=== PATIENT | female | born 1960 | race Caucasian/White ===

== ENCOUNTER → 2023-06-24 12:19 | Outpatient (REF) | payer BC, SELFPAY | LOC: HWRAD 12:19 | PROVIDERS: ATTENDING PHYSICIAN Internal Medicine | DX: R10.31 Right lower quadrant pain (principal) | CPT/HCPCS: 73502 ==

== ENCOUNTER → 2023-07-15 17:38 | Outpatient (REF) | payer BC, SELFPAY | LOC: PAVMRI 17:38 | PROVIDERS: ATTENDING PHYSICIAN Internal Medicine; FAMILY PHYSICIAN Internal Medicine Geriatric Medicine | DX: R10.31 Right lower quadrant pain (principal) | CPT/HCPCS: 73721 ==

== ENCOUNTER → 2023-09-05 16:06 | Outpatient (REF) | payer BC, SELFPAY | LOC: HWWDC 16:06 | PROVIDERS: ATTENDING PHYSICIAN Internal Medicine; FAMILY PHYSICIAN Internal Medicine Geriatric Medicine | DX: Z12.31 Encounter for screening mammogram for malignant neoplasm of breast (principal) | CPT/HCPCS: 77063; 77067 ==

== ENCOUNTER → 2023-09-26 06:04 | Outpatient (REF) | payer BC, SELFPAY ==
[2023-09-26 09:38] LABS: % Basophils 0.7 % (0-2); % Immature Granulocytes 0.3 % (0-0.5); % Lymphocytes 30.2 % (20.5-51.1); % Monocytes 6.9 % (1.7-9.3); % Neutrophils 59.9 % (42.2-75.2); Absolute Basophils 0.1 10^3/uL (0-0.2); Absolute Eosinophils 0.2 10^3/uL (0-0.7); Absolute Lymphocytes 2.3 10^3/uL (1.2-3.4); Absolute Monocytes 0.5 10^3/uL (0.1-0.6); Absolute Neutrophils 4.5 10^3/uL (1.4-6.5); Hematocrit 40.1 % (37.0-47.0); Hemoglobin 13.6 g/dL (12.0-16.0); Mean Corp Hgb Conc. 33.9 g/dL (33.0-37.0); Mean Corpuscular Hgb 30.7 pg (27.0-31.0); Mean Corpuscular Volume 90.5 fL (81.0-99.0); Mean Platelet Volume 10.1 fL (7.4-10.4); Nucleated Red Blood Cells % 0 %; Platelet Count 218 10^3/uL (130-400); Red Blood Cell Count 4.43 10^6/uL (4.20-5.40); Red Cell Dist. Width 12.4 % (11.5-14.5); White Blood Cell Count 7.6 10^3/uL (4.8-10.8)
[2023-09-26 09:41] LABS: Urine Albumin Negative (Neg - Trace); Urine Bilirubin Negative (Negative); Urine Character Clear (Clear); Urine Color Yellow; Urine Glucose Negative (Negative); Urine Ketone Negative (Negative); Urine Leukocyte 1+ (Negative); Urine Nitrite Negative (Negative); Urine Occult Blood Negative (Negative); Urine Specific Gravity 1.015 (<1.030); Urine Urobilinogen Negative (Neg - 1+)
[2023-09-26 09:52] LABS: ALT (SGPT) 35 U/L (0-35); AST (SGOT) 29 U/L (14-36); Albumin 4.5 g/dl (3.5-5.0); Alkaline Phosphatase 81 U/L (38-126); Blood Urea Nitrogen 26 mg/dl (7-17); Calcium 9.6 mg/dl (8.4-10.2); Carbon Dioxide 24 mmol/L (22-30); Chloride 105 mmol/L (98-107); Glucose 127 mg/dl (70-99); HDL Cholesterol 52 mg/dl; LDL Cholesterol, Calculated 111 mg/dl; Phosphorus 3.9 mg/dl (2.5-4.5); Potassium 4.5 mmol/L (3.5-5.1); Sodium 138 mmol/L (135-145); Total Bilirubin 0.8 mg/dl (0.2-1.3); Total Cholesterol 193 mg/dl (50-199); Total Protein 7.7 g/dl (6.3-8.2); Triglyceride 154 mg/dl (10-149); Very Low Density Lipoprotein 30 mg/dl (0-30); eGFR > 60.00
[2023-09-26 10:02] LABS: Urine Squamous Cell 21-25 /LPF (Few)
[2023-09-26 10:03] LABS: Urine Mucus Few; Urine White Cell 16-20 /HPF (0-5)
[2023-09-26 10:04] LABS: Urine Bacteria Few (Negative)
[2023-09-26 10:15] LABS: Free T4 0.83 ng/dl (0.78-2.19); Vitamin D, 25-OH*** 29.3 ng/mL (30-80)
[2023-09-26 10:21] LABS: TSH 4.86 uIU/ml (0.47-4.68)
== END ==
LOC: HWLAB 06:04
PROVIDERS: ATTENDING PHYSICIAN Internal Medicine Geriatric Medicine
DX: E55.9 Vitamin D deficiency, unspecified (principal); E03.8 Other specified hypothyroidism; R73.01 Impaired fasting glucose; K76.0 Fatty (change of) liver, not elsewhere classified; E66.01 Morbid (severe) obesity due to excess calories
CPT/HCPCS: 36415; 80053; 80061; 81003; 81015; 82306; 83036; 84100; 84439; 84443; 85025

== ENCOUNTER → 2024-05-25 12:54 | Outpatient (REF) | payer BC, SELFPAY | LOC: EMG 12:54 | PROVIDERS: ATTENDING PHYSICIAN Internal Medicine Geriatric Medicine | DX: M54.31 Sciatica, right side (principal); R20.0 Anesthesia of skin | CPT/HCPCS: 95886; 95910 ==

== ENCOUNTER → 2024-06-01 06:10 | Outpatient (REF) | payer BC, SELFPAY ==
[2024-06-01 09:54] LABS: % Basophils 0.7 % (0-2); % Eosinophils 2.1 % (0-6); % Immature Granulocytes 0.3 % (0-0.5); % Lymphocytes 36.2 % (20.5-51.1); % Monocytes 7.2 % (1.7-9.3); % Neutrophils 53.5 % (42.2-75.2); Absolute Basophils 0.1 10^3/uL (0-0.2); Absolute Eosinophils 0.2 10^3/uL (0-0.7); Absolute Lymphocytes 2.6 10^3/uL (1.2-3.4); Absolute Monocytes 0.5 10^3/uL (0.1-0.6); Absolute Neutrophils 3.9 10^3/uL (1.4-6.5); Hematocrit 40.3 % (37.0-47.0); Hemoglobin 13.4 g/dL (12.0-16.0); Mean Corp Hgb Conc. 33.3 g/dL (33.0-37.0); Mean Corpuscular Hgb 30.6 pg (27.0-31.0); Mean Platelet Volume 9.9 fL (7.4-10.4); Nucleated Red Blood Cells % 0 %; Platelet Count 196 10^3/uL (130-400); Red Blood Cell Count 4.38 10^6/uL (4.20-5.40); Red Cell Dist. Width 12.6 % (11.5-14.5); White Blood Cell Count 7.2 10^3/uL (4.8-10.8)
[2024-06-01 09:56] LABS: Urine Albumin 1+ (Neg - Trace); Urine Bilirubin Negative (Negative); Urine Character Clear (Clear); Urine Color Yellow; Urine Glucose Negative (Negative); Urine Ketone Negative (Negative); Urine Leukocyte 3+ (Negative); Urine Nitrite Negative (Negative); Urine Occult Blood 1+ (Negative); Urine Specific Gravity 1.015 (<1.030); Urine Urobilinogen Negative (Neg - 1+)
[2024-06-01 10:01] LABS: ALT (SGPT) 39 U/L (0-35); AST (SGOT) 26 U/L (14-36); Albumin 4.4 g/dl (3.5-5.0); Alkaline Phosphatase 71 U/L (38-126); Blood Urea Nitrogen 19 mg/dl (7-17); Calcium 9.9 mg/dl (8.4-10.2); Carbon Dioxide 25 mmol/L (22-30); Chloride 104 mmol/L (98-107); Creatine Phosphokinase 90 U/L (30-135); Glucose 133 mg/dl (70-99); HDL Cholesterol 53 mg/dl; LDL Cholesterol, Calculated 110 mg/dl; Potassium 4.7 mmol/L (3.5-5.1); Sodium 140 mmol/L (135-145); Total Bilirubin 0.8 mg/dl (0.2-1.3); Total Cholesterol 190 mg/dl (50-199); Total Protein 7.3 g/dl (6.3-8.2); Triglyceride 139 mg/dl (10-149); Very Low Density Lipoprotein 27 mg/dl (0-30); eGFR > 60.00
[2024-06-01 10:26] LABS: Urine Bacteria Few (Negative); Urine Red Blood Cell 0-2 /HPF (0-2); Urine White Cell 21-25 /HPF (0-5)
[2024-06-01 10:32] LABS: Vitamin D, 25-OH*** 29.6 ng/mL (30-80)
[2024-06-01 10:45] LABS: TSH 4.25 uIU/ml (0.47-4.68)
[2024-06-01 11:02] LABS: Erythrocyte Sed Rate 7 mm/hour (0-20)
[2024-06-01 13:38] LABS: Glycohemoglobin (HgbA1c) 6.3 % (4.0-5.6)
[2024-06-03 17:03] LABS: ANA, IgG Reflex to HEp-2 None Detected (None Detected)
== END ==
LOC: HWLAB 06:10
PROVIDERS: ATTENDING PHYSICIAN Internal Medicine Geriatric Medicine
DX: E66.01 Morbid (severe) obesity due to excess calories (principal); E03.8 Other specified hypothyroidism; E78.2 Mixed hyperlipidemia; K76.0 Fatty (change of) liver, not elsewhere classified; E55.9 Vitamin D deficiency, unspecified; R73.01 Impaired fasting glucose; E66.09 Other obesity due to excess calories; M85.89 Other specified disorders of bone density and structure, multiple sites
CPT/HCPCS: 36415; 80053; 80061; 81003; 81015; 82306; 82550; 83036; 84443; 85025; 85652; 86038; 86140

== ENCOUNTER → 2024-09-22 06:07 | Outpatient (REF) | payer BC, SELFPAY ==
[2024-09-22 10:16] LABS: ALT (SGPT) 36 U/L (0-35); AST (SGOT) 25 U/L (14-36); Albumin 4.4 g/dl (3.5-5.0); Alkaline Phosphatase 64 U/L (38-126); Blood Urea Nitrogen 23 mg/dl (7-17); Calcium 9.6 mg/dl (8.4-10.2); Carbon Dioxide 24 mmol/L (22-30); Chloride 107 mmol/L (98-107); Glucose 139 mg/dl (70-99); Potassium 4.6 mmol/L (3.5-5.1); Sodium 141 mmol/L (135-145); Total Bilirubin 0.6 mg/dl (0.2-1.3); Total Protein 7.4 g/dl (6.3-8.2); eGFR > 60.00
[2024-09-22 10:30] LABS: Glycohemoglobin (HgbA1c) 6.4 % (4.0-5.6)
== END ==
LOC: HWLAB 06:07
PROVIDERS: ATTENDING PHYSICIAN Internal Medicine Geriatric Medicine
DX: E66.01 Morbid (severe) obesity due to excess calories (principal); E03.8 Other specified hypothyroidism; E78.2 Mixed hyperlipidemia; K76.0 Fatty (change of) liver, not elsewhere classified; E55.9 Vitamin D deficiency, unspecified; R73.01 Impaired fasting glucose; E66.09 Other obesity due to excess calories; E06.3 Autoimmune thyroiditis; M85.859 Other specified disorders of bone density and structure, unspecified thigh; M79.604 Pain in right leg
CPT/HCPCS: 36415; 80053; 83036

== ENCOUNTER → 2024-10-05 11:46 | Outpatient (REF) | payer BC, SELFPAY | LOC: HWWDC 11:46 | PROVIDERS: ATTENDING PHYSICIAN Internal Medicine Geriatric Medicine | DX: Z12.31 Encounter for screening mammogram for malignant neoplasm of breast (principal) | CPT/HCPCS: 77063; 77067 ==

== ENCOUNTER 2024-11-22 06:17 | Day surgery (SDC) | payer BC, SELFPAY ==
--- NOTE | 2024-11-05 12:57 | CM ---
Demographics: Lives in a second floor apartment
Living situation: Lives with
Support Person Post Operatively:
History of
VN: yes, not currently on service
SNF: No
Outpatient: [facility], appointment made
Has patient purchased required equipment: natanael lay encouraged review of [employer] D[employer] list
PCP: Dr. Scott
Pharmacy: [facility]
Post Operative Discharge Plan: Home after SDS with [facility].
--- NOTE | 2024-11-09 15:01 | VNURNOTE ---
[facility] liaison called patient to review [facility] joint protocol. No answer, left message. [facility] referral placed in [facility].
[2024-11-10 13:18] LABS: Hematocrit 40.4 % (37.0-47.0); Hemoglobin 13.3 g/dL (12.0-16.0); Mean Corp Hgb Conc. 32.9 g/dL (33.0-37.0); Mean Corpuscular Volume 92.0 fL (81.0-99.0); Platelet Count 201 10^3/uL (130-400); Red Cell Dist. Width 12.3 % (11.5-14.5)
[2024-11-10 13:47] LABS: ALT (SGPT) 45 U/L (0-35); AST (SGOT) 31 U/L (14-36); Albumin 4.8 g/dl (3.5-5.0); Alkaline Phosphatase 69 U/L (38-126); Blood Urea Nitrogen 22 mg/dl (7-17); Calcium 9.7 mg/dl (8.4-10.2); Carbon Dioxide 26 mmol/L (22-30); Chloride 105 mmol/L (98-107); Glucose 111 mg/dl (70-99); Potassium 4.4 mmol/L (3.5-5.1); Sodium 141 mmol/L (135-145); Total Protein 8.0 g/dl (6.3-8.2); eGFR 56.11
[2024-11-10 13:55] VITALS: BMI 38.1
[2024-11-10 14:53] LABS: Glycohemoglobin (HgbA1c) 6.3 % (4.0-5.6)
[2024-11-10 16:12] LABS: Vitamin D, 25-OH*** 29.9 ng/mL (30-80)
[2024-11-10 16:26] LABS: TSH 2.53 uIU/ml (0.47-4.68)
--- NOTE | 2024-11-16 10:33 | VNURNOTE ---
Patient is scheduled for an elective L TKA on 11/22 - she is a same day patient with Dr Edgar. Spoke with patient prior to surgery. Introduced role of [facility] Liaison. Patient reports that she lives with spouse in a MULTI story home.
She has a ramp to enter and a ramp to the first floor. She has a first floor set up.
There is a bathroom and bedroom on the lead data entry operator. She has a shower chair and rolling walker.
PCP is Dr Scott
Discussed [facility] joint protocol and post surgical plans.
Reviewed that she will have VN services initially and will then start outpatient PT.
Patient selects [facility] for home care needs and will go to [facility] for outpatient PT. Scheduled for Nov 25.
Patient is in agreement with plan and states that her spouse will be home with her. Advised to bring RW day of surgery. [facility].
Plan: [facility] per [facility] joint protocol 11/22 then outpt PT on 11/25
[2024-11-22] VITALS (10 sets, daily range): BP systolic 97–169; BP diastolic 68–100; BMI 38.1
[2024-11-22] MEDS: TYLENOL 650 MG PO (09:06)
[2024-11-22] MEDS: CELEBREX 200 MG PO (09:06)
--- NOTE | 2024-11-22 09:18 | W.DS.TRANS ---
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
-
Discharge Instructions:
Discharge Diagnosis/Procedures L TKA Dr. Edgar 11/22/24-SDS
Diet As tolerated
Activity With Walker
Additional Activity use DVT device when sleeping and sitting for
prolonged periods
Driving Restrictions No driving
Bathing Restrictions OK to Shower
Other Services PT
Instructions:
Stand-Alone Forms: SDS Total Hip and Knee D/C
Changes to Home Medications: Yes
Discharge Medications:
DC Medications w/original date entered in [employer]
mupirocin 2 % topical ointment 1 applic topical BID infection prevention #1 tube 11/09/24
cefadroxil 500 mg capsule 500 mg PO BID infection prevention #14 caps 11/10/24
celecoxib 200 mg capsule 200 mg PO DAILY Anti-inflammatory #14 caps 11/10/24
dexamethasone 4 mg tablet 4 mg PO BID inflammation #6 tabs 11/10/24
famotidine 20 mg tablet 20 mg PO HS GI prophylaxis #30 tabs 11/10/24
gabapentin 300 mg capsule 300 mg PO HS sleep/pain #10 caps 11/10/24
ondansetron 4 mg disintegrating tablet 4 mg PO Q6H PRN n/v #20 tabs 11/10/24
oxycodone 5 mg tablet 5 mg PO Q6H PRN 1 tab moderate pain, 2 tabs severe pain #30 tabs 11/10/24
ergocalciferol (vitamin D2) 1,250 mcg (50,000 unit) capsule 1,250 mcg PO QWEEK vit D deficiency #12 caps 11/11/24
Saccharomyces boulardii 250 mg capsule (Florastor) 250 mg PO BID #1 cap 11/22/24
acetaminophen 500 mg tablet 500 - 1,000 mg (1 - 2 x 500 mg) PO QID #0 tabs 11/22/24
aspirin 325 mg tablet 325 mg PO DAILY blood clot prevention #1 tab 11/22/24
docusate sodium 100 mg capsule (Colace) 100 mg PO BID stool softner #1 cap 11/22/24
magnesium hydroxide 400 mg/5 mL oral suspension (Milk of Magnesia) 30 ml PO HS PRN constipation #1 mL 11/22/24
sennosides 8.6 mg tablet (Senokot) 17.2 mg (2 x 8.6 mg) PO BID laxative #2 tabs 11/22/24
Home Medication Changes
mupirocin 2 % topical ointment 1 applic topical BID infection prevention #1 tube 11/09/24
cefadroxil 500 mg capsule 500 mg PO BID infection prevention #14 caps 11/10/24
celecoxib 200 mg capsule 200 mg PO DAILY Anti-inflammatory #14 caps 11/10/24
dexamethasone 4 mg tablet 4 mg PO BID inflammation #6 tabs 11/10/24
famotidine 20 mg tablet 20 mg PO HS GI prophylaxis #30 tabs 11/10/24
gabapentin 300 mg capsule 300 mg PO HS sleep/pain #10 caps 11/10/24
ondansetron 4 mg disintegrating tablet 4 mg PO Q6H PRN n/v #20 tabs 11/10/24
oxycodone 5 mg tablet 5 mg PO Q6H PRN 1 tab moderate pain, 2 tabs severe pain #30 tabs 11/10/24
ergocalciferol (vitamin D2) 1,250 mcg (50,000 unit) capsule 1,250 mcg PO QWEEK vit D deficiency #12 caps 11/11/24
Saccharomyces boulardii 250 mg capsule (Florastor) 250 mg PO BID #1 cap 11/22/24
acetaminophen 500 mg tablet 500 - 1,000 mg (1 - 2 x 500 mg) PO QID #0 tabs 11/22/24
aspirin 325 mg tablet 325 mg PO DAILY blood clot prevention #1 tab 11/22/24
docusate sodium 100 mg capsule (Colace) 100 mg PO BID stool softner #1 cap 11/22/24
magnesium hydroxide 400 mg/5 mL oral suspension (Milk of Magnesia) 30 ml PO HS PRN constipation #1 mL 11/22/24
sennosides 8.6 mg tablet (Senokot) 17.2 mg (2 x 8.6 mg) PO BID laxative #2 tabs 11/22/24
Pending Results: No
[2024-11-22] MEDS: NORMOSOL-R/PLASMALYTE-A 1000 IV (09:32)
[2024-11-22] MEDS: ROXICODONE 5 MG PO ×2 (15:00→15:51)
[2024-11-22] MEDS: ANCEF 5 IV (15:40)
== END 2024-11-22 16:16 | disposition home or self-care (01) ==
LOC: SDS 06:17
PROVIDERS: ATTENDING PHYSICIAN Specialist; FAMILY PHYSICIAN Internal Medicine Geriatric Medicine; OTHER PHYSICIAN Physician Assistant Medical
DX: M17.12 Unilateral primary osteoarthritis, left knee (principal); E66.9 Obesity, unspecified; R00.1 Bradycardia, unspecified; M85.80 Other specified disorders of bone density and structure, unspecified site; E55.9 Vitamin D deficiency, unspecified; K76.0 Fatty (change of) liver, not elsewhere classified; G47.33 Obstructive sleep apnea (adult) (pediatric)
CPT/HCPCS: 27447; C1776; 36415; 73560; 80053; 82306; 83036; 84443; 85027; 87070; 93005; 97116; 97162; C1713

== ENCOUNTER → 2024-12-30 07:21 | Outpatient (REF) | payer BC, SELFPAY ==
[2024-12-30 09:38] LABS: Hematocrit 40.0 % (37.0-47.0); Hemoglobin 13.4 g/dL (12.0-16.0); Mean Corp Hgb Conc. 33.5 g/dL (33.0-37.0); Mean Corpuscular Volume 91.3 fL (81.0-99.0); Nucleated Red Blood Cells % 0 %; Platelet Count 199 10^3/uL (130-400); Red Cell Dist. Width 12.3 % (11.5-14.5)
[2024-12-30 09:41] LABS: Urine Character Clear (Clear)
[2024-12-30 10:08] LABS: Urine Urothelial Cell 0-2 /LPF (FEW)
[2024-12-30 10:09] LABS: Urine Red Blood Cell 0-2 /HPF (0-2)
[2024-12-30 10:59] LABS: ALT (SGPT) 33 U/L (0-35); AST (SGOT) 27 U/L (14-36); Albumin 4.7 g/dl (3.5-5.0); Alkaline Phosphatase 74 U/L (38-126); Blood Urea Nitrogen 19 mg/dl (7-17); Calcium 9.9 mg/dl (8.4-10.2); Carbon Dioxide 26 mmol/L (22-30); Chloride 105 mmol/L (98-107); Glucose 127 mg/dl (70-99); HDL Cholesterol 51 mg/dl; LDL Cholesterol, Calculated 114 mg/dl; Potassium 4.7 mmol/L (3.5-5.1); Sodium 140 mmol/L (135-145); Total Protein 8.0 g/dl (6.3-8.2); Very Low Density Lipoprotein 32 mg/dl (0-30); eGFR > 60.00
[2024-12-30 11:12] LABS: Vitamin D, 25-OH*** 39.2 ng/mL (30-80)
[2024-12-30 11:26] LABS: TSH 2.82 uIU/ml (0.47-4.68)
== END ==
LOC: HWLAB 07:21
PROVIDERS: ATTENDING PHYSICIAN Internal Medicine Geriatric Medicine
DX: E66.01 Morbid (severe) obesity due to excess calories (principal); E03.8 Other specified hypothyroidism; E78.2 Mixed hyperlipidemia; K76.0 Fatty (change of) liver, not elsewhere classified; E55.9 Vitamin D deficiency, unspecified; R73.01 Impaired fasting glucose; E66.09 Other obesity due to excess calories; E06.3 Autoimmune thyroiditis; M85.859 Other specified disorders of bone density and structure, unspecified thigh; M79.604 Pain in right leg; Z13.89 Encounter for screening for other disorder
CPT/HCPCS: 36415; 80053; 80061; 81003; 81015; 82306; 84439; 84443; 85025